=== PATIENT | male | born 1975 | race African-American/Black ===

== ENCOUNTER 2020-03-24 11:52 | Emergency (ER) | payer OTHER, SELFPAY ==
--- NOTE | 2020-03-24 12:26 | ED.ABDPAIN ---
HPI - Abdominal Pain General Chief Complaint: Abdominal Pain Stated Complaint: abd pain Time Seen by Provider: 03/24/20 12:25 Source: patient Mode of arrival: ambulatory Limitations: no limitations History of Present Illness MD elicited complaint: abdominal pain and flank pain Pertinent past history: HIV Onset (ago): day(s) (yesterday) Pain Consistency: constant Location: L flank Severity: severe Quality: stabbing Radiation: suprapubic Migration to: no migration Exacerbating factors: nothing Relieving factors: nothing Associated symptoms: nausea and vomiting Related Data Previous Rx's Medication Instructions Recorded magnesium oxide 400 mg PO DAILY 10 Days #10 cap 03/24/20 ondansetron 4 mg PO Q8H PRN #20 tab 03/24/20 promethazine 25 mg PO TID PRN #14 tab 03/24/20 Allergies Allergy/AdvReac Type Severity Reaction Status Date / Time ibuprofen [From Motrin] Allergy Swelling Verified 03/24/20 12:30 Review of Systems Review of Systems Constitutional : No Fever, No Chills ENT/Mouth : No sore throat Eyes: No Eye Pain, No Swelling, No Redness Cardiovascular : No Chest Pain, No SOB Respiratory : No Cough, No Sputum, No Wheezing Gastrointestinal : positive Nausea, positive Vomiting, No Diarrhea, positive abdominal pain Genitourinary : no Dysuria, no urinary frequency, no Hematuria, positive Flank Pain, positive hesitancy Musculoskeletal : No joint pain, No Myalgias Skin : No Skin Lesions, No rash Neuro : No Weakness, No Numbness, No Headache Psych : No Anxiety/Panic, No Depression Heme/Lymph: No Bruising, No Lymphadenopathy Endocrine : No Polyuria, No Polydipsia All other systems reviewed and are negative Physical Exam Vital Signs: Vital Signs: Last Vital Signs Temp 98.1 F 03/24/20 14:44 Pulse 82 03/24/20 14:44 Resp 16 03/24/20 14:44 BP 158/78 H 03/24/20 14:44 Pulse Ox 98 03/24/20 14:44 Body Mass Index 23.1 Appearance: Alert. Oriented X3. No acute distress. Anxious Eyes: Pupils equal, round and reactive to light. ENT: Pharynx normal. Neck: Normal inspection. Neck supple. CVS: Normal heart rate and rhythm. Pulses normal. Respiratory: No respiratory distress. Breath sounds normal. Abdomen: Soft and mild L abdomen ttp : no ttp, normal exam, no swelling Skin: Skin warm and dry. Normal skin color. Normal skin turgor. Extremities: No lower extremity edema. No calf ttp Neuro: Oriented X 3. No motor deficit. No sensory deficit. Course Course Course Narrative: no acute findings on urine / CT scan / labs and US stable for DC, innapropriately yelling at staff demanding medications, had carpopedal spasm of L arm with BP cuff calcium ordered empircally plan to DC home after repletion of lytes MDM - Abdominal Pain MDM Narrative Medical decision making narrative: 45 yo male with n/v and L flank pain radiating into groin, will need labs, IV morphine for pain, CT scan for renal colic, dispo per results and findings Differential Diagnosis Differential diagnosis: Likely calculus of kidney Lab Data Result diagrams: 03/24/20 15:26 03/24/20 15:26 Labs: Lab Results 03/24/20 03/24/20 03/24/20 Range/Units 15:26 15:26 15:26 WBC 10.9 H (4.8-10.8) X10*3/uL RBC 4.89 (4.60-5.80) X10*6/uL Hgb 13.3 L (14.0-18.0) g/dl Hct 39.6 L (42-52) % MCV 81.0 (80-98) fL MCH 27.2 (27.0-33.0) pg MCHC 33.6 (31.0-36.0) g/dl RDW 14.5 (11.0-16.0) % Plt Count 224 (160-400) X10*3/uL MPV 9.1 L (9.4-12.4) fL Immature Gran % (Auto) 0.3 (0.0-0.4) % Neut % (Auto) 88.7 H (45-73) % Lymph % (Auto) 6.6 L (20-40) % Custer % (Auto) 4.3 (2-11) % Eos % (Auto) 0.0 (0-4) % Baso % (Auto) 0.1 (0-2) % Lymph # (Auto) 0.7 L (1.2-4.9) X10*3/uL Custer # (Auto) 0.5 (0.1-1.2) X10*3/uL Eos # (Auto) 0.0 (0.0-0.4) X10*3/uL Baso # (Auto) 0.0 (0.0-0.2) X10*3/uL Abs Immat Gran (auto) 0.03 (0.00-0.03) X10*3/uL Absolute Neuts (auto) 9.7 H (2.0-8.3) X10*3/uL Absolute Nucleated RBC 0.000 (0.0-0.012) X10*3/uL Nucleated RBC % (auto) 0.0 (0.0-0.2) /100WBC Hold Blue Top SEE NOTE Sodium 133 L (135-145) mmol/L Potassium 3.7 (3.3-5.1) mmol/l Chloride 105 (96-108) mmol/L Carbon Dioxide 18 L (22-29) mmol/L Anion Gap 14 (12-20) BUN 13 (9-16) mg/dL Creatinine 1.03 (0.5-1.4) mg/dL Estim Creat Clear Calc 102.7 Estimated GFR > 60 Random Glucose 116 H (60-115) mg/dL Calcium 8.4 (8.4-10.2) mg/dL Magnesium 1.2 L* (1.6-2.6) mg/dL Total Bilirubin 0.8 (0.0-1.0) mg/dL Direct Bilirubin 0.3 (0.0-0.5) mg/dL AST 31 (5-37) U/L ALT 33 (0-40) U/L Alkaline Phosphatase 83 (39-117) U/L Total Protein 7.6 (6.5-8.0) g/dL Albumin 3.7 (3.5-5.0) g/dL Lipase 14 (8-78) U/L Urine Color Urine Appearance Urine pH (5.0-8.0) Ur Specific Marion (1.005-1.025) Urine Protein (NEG-TRACE) MG/DL Urine Glucose (UA) (NEG) MG/DL Urine Ketones (NEG) MG/DL Urine Blood (NEG) Urine Nitrite (NEG) Ur Leukocyte Esterase (NEG) 03/24/20 Range/Units 15:44 WBC (4.8-10.8) X10*3/uL RBC (4.60-5.80) X10*6/uL Hgb (14.0-18.0) g/dl Hct (42-52) % MCV (80-98) fL MCH (27.0-33.0) pg MCHC (31.0-36.0) g/dl RDW (11.0-16.0) % Plt Count (160-400) X10*3/uL MPV (9.4-12.4) fL Immature Gran % (Auto) (0.0-0.4) % Neut % (Auto) (45-73) % Lymph % (Auto) (20-40) % Custer % (Auto) (2-11) % Eos % (Auto) (0-4) % Baso % (Auto) (0-2) % Lymph # (Auto) (1.2-4.9) X10*3/uL Custer # (Auto) (0.1-1.2) X10*3/uL Eos # (Auto) (0.0-0.4) X10*3/uL Baso # (Auto) (0.0-0.2) X10*3/uL Abs Immat Gran (auto) (0.00-0.03) X10*3/uL Absolute Neuts (auto) (2.0-8.3) X10*3/uL Absolute Nucleated RBC (0.0-0.012) X10*3/uL Nucleated RBC % (auto) (0.0-0.2) /100WBC Hold Blue Top Sodium (135-145) mmol/L Potassium (3.3-5.1) mmol/l Chloride (96-108) mmol/L Carbon Dioxide (22-29) mmol/L Anion Gap (12-20) BUN (9-16) mg/dL Creatinine (0.5-1.4) mg/dL Estim Creat Clear Calc Estimated GFR Random Glucose (60-115) mg/dL Calcium (8.4-10.2) mg/dL Magnesium (1.6-2.6) mg/dL Total Bilirubin (0.0-1.0) mg/dL Direct Bilirubin (0.0-0.5) mg/dL AST (5-37) U/L ALT (0-40) U/L Alkaline Phosphatase (39-117) U/L Total Protein (6.5-8.0) g/dL Albumin (3.5-5.0) g/dL Lipase (8-78) U/L Urine Color YELLOW Urine Appearance CLEAR Urine pH 8.5 H (5.0-8.0) Ur Specific Marion 1.015 (1.005-1.025) Urine Protein NEG (NEG-TRACE) MG/DL Urine Glucose (UA) NEG (NEG) MG/DL Urine Ketones NEG (NEG) MG/DL Urine Blood NEG (NEG) Urine Nitrite NEG (NEG) Ur Leukocyte Esterase NEG (NEG) Discharge Plan Discharge Clinical Impression: Hypomagnesemia Vomiting Qualifiers: Vomiting type: unspecified Vomiting Intractability: non-intractable Nausea presence: with nausea Qualified Code(s): R11.2 - Nausea with vomiting, unspecified Abdominal pain Qualifiers: Abdominal location: unspecified location Qualified Code(s): R10.9 - Unspecified abdominal pain Patient Disposition: Home, Self-Care Instructions: Acute Nausea and Vomiting (ED), Abdominal Pain (ED) Additional Instructions: return to ED for any worsening symptoms or concerns Prescriptions: New ondansetron 4 mg tablet,disintegrating 4 mg PO Q8H PRN (Reason: nausea and vomiting) Qty: 20 RF: 0 promethazine 25 mg tablet 25 mg PO TID PRN (Reason: nausea and vomiting) Qty: 14 RF: 0 magnesium oxide 400 mg magnesium capsule 400 mg PO DAILY 10 Days Qty: 10 RF: 0 PMFSH Past Medical History Attestation statement: The following information was validated with the patient. Medical History Hepatitis C HIV (human immunodeficiency virus infection) Social History Social History Alcohol intake: never Smoking Status: Current every day smoker Use of substances other than those prescribed or required for medical reasons: No Substance Use Type: Former Substance User Advance Directives: No Advance Directives Information Provided: Yes
[2020-03-24 12:27] VITALS: BP 162/90; PULSE 74; RESP 20; TEMP 36.9; O2SAT 99; BMI 23.1
--- NOTE | 2020-03-24 12:35 | CT_ITS ---
EXAMINATION: CT ABDOMEN AND PELVIS WITHOUT CONTRAST CLINICAL INFORMATION: Left flank pain COMPARISON: None TECHNIQUE: Multidetector volumetric imaging was performed from the superior aspect of the liver through the pubic symphysis. Sagittal and coronal reformatted images were obtained on the technologist's workstation. This CT examination was performed using dose optimization techniques as appropriate, variously including the following: *Automated exposure control *Adjustment of mA and/or kV according to patient size (this includes techniques or standardized protocols for targeted exams where dose is matched to indication/reason for exam; i.e. extremities or head) *Use of iterative reconstruction technique DLP: 454 mGy-cm FINDINGS: LUNG BASES: The visualized lung bases are unremarkable. LIVER, GALLBLADDER, AND BILIARY TREE: The liver is normal in size, shape, and attenuation. No focal hepatic lesion or biliary ductal dilatation is present. The gallbladder is unremarkable with no evidence of radiopaque gallstones, gallbladder wall thickening, or obvious pericholecystic inflammatory changes. PANCREAS: Unremarkable. SPLEEN: Unremarkable. ADRENAL GLANDS: Unremarkable. KIDNEYS AND URETERS: The kidneys are normal in size, shape, and attenuation. There is no hydronephrosis or hydroureter. No left-sided calculi are seen. There is a right midpole 0.4 cm calculus which is positioned 5.5 cm from the posterior axillary line. BLADDER: Unremarkable. GASTROINTESTINAL TRACT: The stomach is unremarkable. Normal caliber small bowel. No obstruction. No colonic wall thickening or acute inflammation. Focal colonic diverticula at the descending colon. No acute inflammation to suggest diverticulitis. No free air or free fluid. Normal appendix with possible tiny appendicolith. ABDOMINAL WALL: Small left inguinal hernia noted. LYMPH NODES: Normal. VASCULAR: Unremarkable. PELVIC VISCERA: The prostate and seminal vesicles are unremarkable. OSSEOUS STRUCTURES: No acute or suspicious osseous abnormality. Endplate changes at the superior endplate anteriorly of L5. CT/CT abdomen pelvis wo con IMPRESSION: No acute finding. No hydronephrosis. Nonobstructing right renal calculus noted.
[2020-03-24 13:30] VITALS: RESP 16
[2020-03-24] MEDS: ondansetron HCL 4 MG/2 ML VIAL IVPUSH (13:30)
[2020-03-24] MEDS: Morphine Sulfate 4 MG/ML CARTRIDGE IVPUSH (13:30)
[2020-03-24] MEDS: 0.9 % Sodium Chloride 1,000 ML 999 ML IVCONT (13:31)
[2020-03-24 13:45] VITALS: BP 160/97; PULSE 78; RESP 16; TEMP 36.7; O2SAT 98
[2020-03-24 14:44] VITALS: BP 158/78; PULSE 82; RESP 16; TEMP 36.7; O2SAT 98
--- NOTE | 2020-03-24 15:11 | US_ITS ---
EXAMINATION: US SCROTUM CLINICAL INFORMATION: Pain. COMPARISON: Previous CT of the abdomen and pelvis from earlier the same day TECHNIQUE: A sonogram of the scrotum was performed assessing garcia-scale appearance and color Doppler flow. Spectral Doppler analysis of the arterial and venous flow were performed in the testes bilaterally. FINDINGS: RIGHT: Right testicle measures 4.6 x 2.8 x 3.4 cm, volume 23 mL. Echotexture is normal. There are several small calcifications. This does not meet criteria for testicular microlithiasis. There is a small 1 x 1 x 2 mm simple appearing cyst in the right testicle. Spectral Doppler analysis of the arterial and venous flow is normal in the right testis. Right epididymal head is normal in size. No right hydrocele or varicocele is seen. Right epididymal Doppler flow is normal. LEFT: Left testicle measures 4.5 x 2.5 x 3.4 cm, volume 20 mL. There are several small calcifications. This does not meet criteria for testicular microlithiasis. Spectral Doppler analysis of the arterial and venous flow is normal in the left testis. Left epididymal head is normal in size. No left hydrocele or varicocele is seen. Left epididymal Doppler flow is normal. There is a normal-appearing left inguinal lymph node. This measures 2 cm in transverse dimension. This is normal ultrasound morphology and flow. US/US scrotum IMPRESSION: No evidence of torsion. Small bilateral testicular calcifications, left greater than right. This does not meet number criteria for testicular microlithiasis. Small simple cyst in the right testicle. Normal-appearing left inguinal lymph node.
[2020-03-24] MEDS: Acetaminophen 325 MG TABLET 650 MG PO (15:22)
[2020-03-24] MEDS: Calcium Gluconate/NaCl,Iso-Osm 2 GM/100 ML PLAST..BAG IV (15:23)
[2020-03-24 15:32] LABS: MANUAL DIFF FLAG NO
[2020-03-24 15:34] LABS: Basophils Percent Auto 0.1 % (0-2); Hematocrit 39.6 % (42-52); Hemoglobin 13.3 g/dl (14.0-18.0); Imm Gran Abs Auto 0.03 X10*3/uL (0.00-0.03); Imm Gran Pct Auto 0.3 % (0.0-0.4); Lymphocytes Absolute Auto 0.7 X10*3/uL (1.2-4.9); Lymphocytes Percent Auto 6.6 % (20-40); Mean Corpuscular HGB Conc 33.6 g/dl (31.0-36.0); Mean Corpuscular Hemoglobin 27.2 pg (27.0-33.0); Mean Platelet Volume 9.1 fL (9.4-12.4); Monocytes Absolute Auto 0.5 X10*3/uL (0.1-1.2); Monocytes Percent Auto 4.3 % (2-11); Neutrophils Absolute Auto 9.7 X10*3/uL (2.0-8.3); Neutrophils Percent Auto 88.7 % (45-73); Platelet Count 224 X10*3/uL (160-400); Red Blood Count 4.89 X10*6/uL (4.60-5.80); Red Cell Distribution Width 14.5 % (11.0-16.0); White Blood Count 10.9 X10*3/uL (4.8-10.8)
[2020-03-24 15:57] LABS: Glucose Urine UA NEG (NEG); Leukocyte Esterase Urine NEG (NEG); Nitrite Urine NEG (NEG); PH 8.5 (5.0-8.0); Specific Gravity - Urine 1.015 (1.005-1.025); Urine Blood NEG (NEG); Urine Ketones NEG (NEG); Urine Protein NEG (NEG-TRACE)
[2020-03-24 15:59] LABS: Appearance Urine CLEAR; Color Urine YELLOW
[2020-03-24 16:00] VITALS: BP 168/88; PULSE 63; RESP 15; O2SAT 98
[2020-03-24 16:11] LABS: Alanine Aminotransferase 33 U/L (0-40); Albumin Level 3.7 g/dL (3.5-5.0); Alkaline Phosphatase 83 U/L (39-117); Anion Gap 14 (12-20); Aspartate Amino Transferase 31 U/L (5-37); Bilirubin Direct 0.3 mg/dL (0.0-0.5); Bilirubin Total 0.8 mg/dL (0.0-1.0); Blood Urea Nitrogen 13 mg/dL (9-16); Calcium 8.4 mg/dL (8.4-10.2); Carbon Dioxide 18 mmol/L (22-29); Chloride 105 mmol/L (96-108); Creatinine Clr Calc Pharmacy 102.7; Estimated Glomerular Filt Rate > 60; Glucose Random 116 mg/dL (60-115); Lipase 14 U/L (8-78); Magnesium 1.2 mg/dL (1.6-2.6); Potassium 3.7 mmol/l (3.3-5.1); Sodium 133 mmol/L (135-145); Total Protein 7.6 g/dL (6.5-8.0)
--- NOTE | 2020-03-24 16:28 | ECG_ITS ---
Test Reason : ABD PAIN Blood Pressure : / mmHG Vent. Rate : 067 BPM Atrial Rate : 066 BPM P-R Int : 152 ms QRS Dur : 104 ms QT Int : 418 ms P-R-T Axes : 080 068 053 degrees QTc Int : 441 ms Normal sinus rhythm Normal ECG No previous ECGs available Referred By: Malika Mcbride Electronically Signed By: OTONIEL BELTRAN MD MTDD
== END 2020-03-24 17:43 | disposition home or self-care (01) ==
PROVIDERS: Emergency Provider Emergency Medicine
DX: R10.9 Unspecified abdominal pain (principal); E83.42 Hypomagnesemia; R11.2 Nausea with vomiting, unspecified; Z79.899 Other long term (current) drug therapy
CPT/HCPCS: 36415; 74176; 76870; 80048; 80076; 81003; 83690; 83735; 85025; 93005; 96361; 96365; 96366; 96375; 99284; J0610; J2270; J2405

== ENCOUNTER 2023-04-16 11:01 | Outpatient (AMB) | payer MEDICAID, SELFPAY ==
[2023-04-16 11:15] VITALS: BP 124/78; PULSE 68; O2SAT 97; BMI 22.6
--- NOTE | 2023-04-16 11:15 | MHC.OFFVIS ---
Intake Vital Signs 04/16/23 11:15 Height 6 ft 1.5 in Weight 173 lb 8 oz BMI 22.6 BP 124/78 Blood Pressure Location Rt brachial Position Sitting Pulse 68 Pulse Source Pulse Oximeter Pulse Oximetry (%) 97 Oxygen Delivery Method Room Air Intake Visit Reasons: polyneuropathy/ Confirmed Intake Note: Pt presents to the office today for a new patient visit for polyneuropathy. Allergies ibuprofen [From Motrin] Allergy (Verified 04/16/23 11:17) Swelling Medication List - Last Reconciled 04/16/23 by Serina Dubon MD [id number] [id number] 50-200-25 mg (Biktarvy) 1 tab PO DAILY gabapentin 300 mg PO TID metoprolol succinate ER 25 mg PO DAILY quetiapine mg PO HPI HPI Comments History of Present Illness Details 48y/o male with HIV is referred here for neuropathy. He describes as pins and needles sensation in his feet and hands that started 3 years ago. It is episodic , and is at rest. stretching or moving around helps. He feels like he has to stretch to relieve symptoms. He also has to pace or walk around. He calls it like an adrenaline chao in his body when he sits down. These symptoms wakes him up from sleep.He denies nay muscle cramps or twitches.He also has h/o left sciatica. He also reports pain in his ankle and calfs sometimes - ? spasm PFSH Medical History (Updated 04/16/23 @ 13:46 by Serina Dubon MD) Numbness and tingling of both legs Sciatica Neuropathy HIV (human immunodeficiency virus infection) Hepatitis C Surgical History History of hernia surgery Family History Mother Hypertension Social History Alcohol intake: never Patient Tobacco Use Status: Current everyday Tobacco user Cigarettes Per Day: 10 Substance Use Type: Marijuana Review of Systems Const Reports weakness and Reports weight loss Musc Reports tingling Neuro Reports memory loss, Reports tingling and Reports weakness Psych Reports memory loss Physical Exam Vital Signs: Last Vital Signs Pulse 68 04/16/23 11:15 BP 124/78 04/16/23 11:15 Pulse Ox 97 04/16/23 11:15 Oxygen Delivery Method Room Air 04/16/23 11:15 BMI result Body Mass Index 22.6 Const General: cooperative and comfortable Nutritional Appearance: average body habitus Orientation/consciousness: patient oriented x3 Eyes Pupils: Equal, round and reactive pupils present Neuro General: patient oriented x3, gait normal, tone normal, moves all extremities and no focal motor deficits Cranial nerves: Yes Equal, round and reactive pupils present, Yes Bilaterally intact EOM present, Yes Nystagmus not present, Yes Normal facial strength present and Yes Midline tongue present Cognition (Neuro): normal cognition Gait exam (Neuro): Normal gait present Motor exam (neuro): 5/5 motor strength present throughout and Normal motor muscle tone present throughout Deep tendon reflexes (DTR's): Right triceps reflex intensity grade: 1+, Left triceps reflex intensity grade: 1+, Rt Biceps (C5, C6): 1+, Left biceps reflex intensity grade: 1+, Right brachioradialis reflex intensity grade: 1+, Left brachioradialis reflex intensity grade: 1+, Right patellar reflex intensity grade: 1+ and Left patellar reflex intensity grade: 1+ Coordination: [id number] test normal Assessment & Plan Assessment & Plan (1) Numbness and tingling of both legs: Comment: ? neuropathy ? restless legs Code(s): R20.0 - Anesthesia of skin; R20.2 - Paresthesia of skin (2) Neuropathy: Code(s): G62.9 - Polyneuropathy, unspecified Plan EMG and labs from PCP Continue gabapentin 300mg tid I will trial him on ropiniorle XR 2mg qhs Medications: New ropinirole ER 2 mg PO BEDTIME 30 tabs 6RF Coding Level of Care Code New Pt Level 4 (60528) Diagnoses Numbness and tingling of both legs R20.0; R20.2 Neuropathy G62.9
== END 2023-04-16 11:43 | disposition home or self-care (01) ==
PROVIDERS: PCP Physician Assistant; Visit Provider Psychiatry & Neurology Neurology
DX: R20.0 Anesthesia of skin (principal); R20.2 Paresthesia of skin; G62.9 Polyneuropathy, unspecified
CPT/HCPCS: 99204

== ENCOUNTER → 2023-04-16 11:01 | Outpatient (BNVA) | payer MEDICAID, SELFPAY | PROVIDERS: Visit Provider Psychiatry & Neurology Neurology | DX: G62.9 Polyneuropathy, unspecified (principal); R20.0 Anesthesia of skin; R20.2 Paresthesia of skin | CPT/HCPCS: 99202 ==